=== PATIENT | male | born 1950 | race Caucasian/White ===

== ENCOUNTER 2023-02-03 10:03 | Emergency (ER) | payer MEDICARE, OTHER, SELFPAY ==
[2023-02-03] VITALS (33 sets, daily range): BP systolic 112–120; BP diastolic 57–62; PULSE 53–77; RESP 11–28; TEMP 36.6; O2SAT 68–100
--- NOTE | 2023-02-03 10:13 | ECG_ITS ---
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 Measurements Intervals [place] [facility] Rate: 55 P: -32 IL: 255 QRS: -21 QRSD: 173 T: 24 QT: 457 QTc: 437 Interpretive Statements SINUS BRADYCARDIA WITH FIRST DEGREE AV BLOCK BORDERLINE LEFT AXIS DEVIATION [QRS AXIS < -20] RIGHT BUNDLE BRANCH BLOCK [120+ ms QRS DURATION, UPRIGHT V1, 40+ ms S IN I/aVL/V4/V5/V6] No previous ECG available for comparison Electronically Signed On 02-03-2023 13:20:10 CDT by Yasir Galicia M.D. [id number]
--- NOTE | 2023-02-03 10:17 | XR_ITS ---
WS: [id number] XR chest 1V portable [id number] REASON FOR EXAM: dyspnea/cough FINDINGS: Mild tortuosity and ectasia of the thoracic aorta. Heart size at the upper limits of normal. Calcified granulomatous disease in both hemithoraces. Calcified probable nodular granulomatous change in the right lung apex. No active pulmonary parenchymal or pleural disease. Mild changes of degenerative spondylosis in the midthoracic spine. XR/XR chest 1V portable [id number] IMPRESSION: No acute chest abnormality.
[2023-02-03 10:40] LABS: Hematocrit 39.8 % (42.0-52.0); Hemoglobin 12.7 g/dL (11.7-16.6); Mean Corpuscular HGB Conc 31.9 g/dL (30.0-36.0); Mean Corpuscular Volume 93.9 fl (80-94); Mean Platelet Volume 11.1 fL (7.4-10.4); Platelet Count 154 10^3/cmm (130-400); Red Blood Count 4.24 10^6/uL (4.1-5.3); Red Cell Distribution Width 14.6 % (12.1-15.1); White Blood Count 10.9 10^3/uL (4.0-10.0)
[2023-02-03 11:01] LABS: Alanine Aminotransferase 63 U/L (0-41); Albumin Level 3.9 g/dL (3.5-5.2); Alkaline Phosphatase 108 U/L (40-130); Anion Gap 13.6 (5-19); Aspartate Amino Transferase 65 U/L (0-40); Blood Urea Nitrogen 24 mg/dL (8-23); Calcium 8.9 mg/dL (8.5-10.5); Carbon Dioxide 26 mmol/L (22-29); Chloride 100 mmol/L (98-107); Globulin 2.9 g/dL (1.3-4.6); Glucose 90 mg/dL (65-115); Osmolality Calculated 284 mOsm/kg (285-295); Potassium 4.6 mmol/L (3.5-5.1); Sodium 135 mmol/L (136-145); Total Bilirubin 0.4 mg/dL (0.15-1.2); Total Protein 6.8 g/dL (6.6-8.7)
--- NOTE | 2023-02-03 11:13 | W.ED.GENADLT ---
HPI - General Adult General: Chief complaint: General Medical Stated complaint: abnormal EKG Time Seen by Provider: 02/03/23 10:14 Source: patient Mode of arrival: ambulatory History of Present Illness: 72-year-old male directed to the ER by his primary care provider. He had a creatinine of 1.69 and a BNP of 597. This was done for lab work was done when he presented to the office complaining of feeling fatigued he denies any chest pain or discomfort no swelling in extremities no change in urinary output he has not had any orthopnea. Has no known history of coronary artery disease. He states he otherwise feels fine. Relieving factors: none Exacerbating factors: none Associated symptoms: Deny chest pain, dyspnea, malaise, nausea, rash or vomiting Review of Systems Const: Reports: fatigue; Denies: fever(s), chills, body aches, change in appetite or malaise ENMT: Denies: throat pain, ear or mastoid pain, nasal discharge or nasal congestion Card: Denies: chest pain, edema, dyspnea on exertion or orthopnea Resp: Denies: dyspnea, productive cough or non-productive cough GI: Denies: abdominal pain, nausea, vomiting, hematemesis, coffee ground emesis, diarrhea, constipation, bloating, hematochezia or melena : Denies: flank pain, dysuria, urinary frequency or urinary urgency Skin/Breast: Denies: rash or pruritus PFSH ED PFSH: Social History Smoking and tobacco status: never smoked Physical Exam Const: COMMON NORMALS: no acute distress GENERAL APPEARANCE: cooperative and comfortable ORIENTATION/CONSCIOUSNESS: Yes awake, Yes oriented to person, Yes oriented to place and Yes oriented to time HENMT: COMMON NORMALS: normocephalic, atraumatic and hearing grossly normal bilaterally HEAD & SCALP: normocephalic and atraumatic Resp: COMMON NORMALS: normal respiratory effort, No retractions, No use of accessory muscles and clear to auscultation bilaterally AUSCULTATION: clear to auscultation bilaterally Cardio: COMMON NORMALS: regular rate, regular rhythm and No murmurs present (Cardio) RATE: regular rate RHYTHM: regular rhythm GI: COMMON NORMALS: Soft to palpation and No hepatosplenomegaly present AUSCULTATION: Yes normoactive bowel sounds PALPATION: Yes Soft to palpation, No Tenderness to palpation present (GI), No Guarding due to palpation present (GI) and Yes No hepatosplenomegaly present Extremity: COMMON NORMALS: normal to inspection, capillary refill normal, no clubbing, cyanosis or edema, no calf tenderness and no pedal edema Neuro: SENSORIUM/ORIENTATION: Yes oriented to person, Yes oriented to place and Yes oriented to time Skin: COMMON NORMALS: no rashes or lesions noted GENERAL SKIN EXAM: no rashes or lesions noted Course Vital Signs: Vital signs: Vital Signs Temperature 97.9 F 02/03/23 10:19 Pulse Rate 54 L 02/03/23 13:00 Respiratory Rate 15 02/03/23 13:00 Blood Pressure 120/57 02/03/23 13:00 Pulse Oximetry 97 02/03/23 12:55 Oxygen Delivery Me thod Room Air 02/03/23 12:55 MDM - General Adult Medical Decision Making Labs are unremarkable. There is a slight elevation in his creatinine which may be his baseline or may be related to his recent use of Bactrim. His BNP is elevated but he has no overt symptoms of fluid overload. Would recommend avoiding Bactrim rechecking his creatinine in 1 to 2 weeks. If he has further symptoms could consider an echocardiogram as an outpatient recommend he follow-up with his primary care doctor Medical Records I reviewed the patient's medical records. Lab Data I reviewed the patient's lab results. 02/03/23 10:20 02/03/23 10:20 Radiology Impressions Chest X-Ray 02/03/23 10:17 IMPRESSION: No acute chest abnormality. Laboratory Results WBC 10.9 10^3/uL (4.0-10.0) H 02/03/23 10:20 RBC 4.24 10^6/uL (4.1-5.3) 02/03/23 10:20 Hgb 12.7 g/dL (11.7-16.6) 02/03/23 10:20 Hct 39.8 % (42.0-52.0) L 02/03/23 10:20 MCV 93.9 fl (80-94) 02/03/23 10:20 MCH 30.0 pg (28.0-34.0) 02/03/23 10:20 MCHC 31.9 g/dL (30.0-36.0) 02/03/23 10:20 RDW 14.6 % (12.1-15.1) 02/03/23 10:20 Plt Count 154 10^3/cmm (130-400) 02/03/23 10:20 MPV 11.1 fL (7.4-10.4) H 02/03/23 10:20 Lymph % (Auto) Not Reportable 02/03/23 10:20 [place] % (Auto) Not Reportable 02/03/23 10:20 Neut # (Auto) Unindentured Apprentice 02/03/23 10:20 Lymph # (Auto) Not Reportable 02/03/23 10:20 [place] # (Auto) Not Reportable 02/03/23 10:20 Total Counted 100 (0-100) 02/03/23 10:20 Atypical Lymphs % 14.0 % (0-5) H 02/03/23 10:20 Absolute Neutrophils 1.1 10^3/cmm (1.4-6.5) L 02/03/23 10:20 Segmented Neutrophils 10 % 02/03/23 10:20 Abs Segm Neuts (Man) 1.1 10/cmm (1.6-7.1) L 02/03/23 10:20 Band Neutrophils 0.0 % 02/03/23 10:20 Abs Band Neuts (Man) 0.0 10^3/cmm (0.0-1.2) 02/03/23 10:20 Absolute Lymphocytes 8.9 10^3/cmm (1.2-3.4) H 02/03/23 10:20 Lymphocytes (Manual) 68 % 02/03/23 10:20 Monocytes (Manual) 8.0 % 02/03/23 10:20 Absolute Monocytes 0.9 10^3/cmm (0.1-0.6) H 02/03/23 10:20 Eosinophils (Manual) 0 % 02/03/23 10:20 Absolute Eosinophils 0.0 10^3/cmm (0.0-0.7) 02/03/23 10:20 Basophils (Manual) 0.0 % 02/03/23 10:20 Absolute Basophils 0.0 10^3/cmm (0.0-0.2) 02/03/23 10:20 Platelet Estimate Normal (Normal) 02/03/23 10:20 Sodium 135 mmol/L (136-145) L 02/03/23 10:20 Potassium 4.6 mmol/L (3.5-5.1) 02/03/23 10:20 Chloride 100 mmol/L (98-107) 02/03/23 10:20 Carbon Dioxide 26 mmol/L (22-29) 02/03/23 10:20 Anion Gap 13.6 (5-19) 02/03/23 10:20 BUN 24 mg/dL (8-23) H 02/03/23 10:20 Creatinine 1.4 mg/dL (0.7-1.2) H 02/03/23 10:20 GFR Calculation Not Reportable 02/03/23 10:20 Glucose 90 mg/dL (65-115) 02/03/23 10:20 Calculated Osmolality 284 mOsm/kg (285-295) L 02/03/23 10:20 Calcium 8.9 mg/dL (8.5-10.5) 02/03/23 10:20 Total Bilirubin 0.4 mg/dL (0.15-1.2) 02/03/23 10:20 AST 65 U/L (0-40) H 02/03/23 10:20 ALT 63 U/L (0-41) H 02/03/23 10:20 Alkaline Phosphatase 108 U/L (40-130) 02/03/23 10:20 Total Protein 6.8 g/dL (6.6-8.7) 02/03/23 10:20 Albumin 3.9 g/dL (3.5-5.2) 02/03/23 10:20 Globulin 2.9 g/dL (1.3-4.6) 02/03/23 10:20 Urine Color Yellow (Yellow) 02/03/23 11:56 Urine Appearance Clear (CLEAR) 02/03/23 11:56 Urine pH 5 (5-7) 02/03/23 11:56 Ur Specific [place] 1.020 (1.005-1.030) 02/03/23 11:56 Urine Protein Neg (Negative) 02/03/23 11:56 Urine Glucose (UA) Norm (Normal) 02/03/23 11:56 Urine Ketones Negative (Negative) 02/03/23 11:56 Urine Blood Neg (Negative) 02/03/23 11:56 Urine Nitrate Negative (Negative) 02/03/23 11:56 Urine Bilirubin Neg (Negative) 02/03/23 11:56 Urine Urobilinogen Norm mg/dL (Negative) 02/03/23 11:56 Ur Leukocyte Esterase Negative (Negative) 02/03/23 11:56 Discharge Plan Discharge Patient Disposition: Home Clinical Impression: Abnormal laboratory test result Condition: Stable Prescriptions: No Action Men's Multi-Vitamin Tablet 1 tab PO DAILY Discharge Orders: Discharge ED (Routine); Ordered 02/03/23 Ordered By: Ney Mc Referrals: Saba Monge NP [Primary Care Provider] - Discharge Diet: Usual diet Discharge Activity: Resume usual activity Patient Instructions: Opioid Safety, Pain Management Activity Restrictions/Additional Instructions: You are seen today with reports of an abnormal creatinine and elevated BNP. Creatinine is likely elevated due to your recent use of the Bactrim. This can be followed up as an outpatient is not emergent and do not require hospitalization for this. BNP is a test that can be used to gauge congestive heart failure. It also has many false positives. 1 of these is elevated creatinines. He have no clinical signs of fluid overload or congestive heart failure at this time this can be also followed up as an outpatient. Coding Level of Care Code ED 3Rd Mate for Rene Melendez
[2023-02-03 12:12] LABS: Slide Review Slide Review Perform
[2023-02-03 12:13] LABS: Absolute Neutrophil 1.1 10^3/cmm (1.4-6.5); Absolute Segmented Neutrophil 1.1 10/cmm (1.6-7.1); Eosinophils 0 %; Lymphocytes 68 %; Lymphocytes Absolute 8.9 10^3/cmm (1.2-3.4); Monocytes Absolute 0.9 10^3/cmm (0.1-0.6); Platelet Estimate Normal (Normal); Segmented Neutrophils 10 %; Total Cells Counted 100 (0-100)
[2023-02-03 12:22] LABS: Add Urine Microscopic? NO; Charge for UA Resulting for Rev
[2023-02-03 12:40] LABS: Bilirubin Urine Neg (Negative); Blood Urine Neg (Negative); Glucose Urine UA Norm (Normal); Ketones Urine Negative (Negative); Leukocyte Esterase Urine Negative (Negative); Nitrate Urine Negative (Negative); Protein Urine Neg (Negative); Urine Appearance Clear (CLEAR); Urine Color Yellow (Yellow); Urobilinogen Urine Norm (Negative); pH Urine 5 (5-7)
== END 2023-02-03 13:07 | disposition home or self-care (01) ==
PROVIDERS: Emergency Provider Family Medicine; PCP Nurse Practitioner Family
DX: R94.31 Abnormal electrocardiogram [ECG] [EKG] (principal); R94.4 Abnormal results of kidney function studies
CPT/HCPCS: 71045; 80053; 80503; 81003; 85007; 85025; 93005; 99285

== ENCOUNTER 2023-02-17 13:07 | Outpatient (CLI) | payer MEDICARE, OTHER, SELFPAY ==
--- NOTE | 2023-02-17 13:18 | USCV_ITS ---
Dino Dudley Age: 72 Gender: M : 1950 Exam Date: 02/17/2023 14:15 Ordering Phys: Juanis Kwok Technologist: DELL Exam Location: [facility] – [place] Indication: murmur BP: 125 / 60 HR: 57 Rhythm: Sinus Technical Quality: Adequate MEASUREMENTS (Male / Female) Normal Values 2D ECHO LVOT Diameter 2.0 cm LV Ejection Fraction MOD 2C 73.1 % LV Ejection Fraction 2C AL 74.0 % LA Diameter 3.8 cm LA Width 4.2 cm LA Height 5.3 cm RA Width 4.0 cm RA Height 4.8 cm Aorta at Sinotubular Diameter 2.6 cm IVC Diameter 1.8 cm M-MODE Aortic Annulus Diameter 2.7 cm LA Ao Ratio MM 1.1 MV E Point Septal Separation 0.3 cm DOPPLER AV Peak Velocity 247.8 cm/s LVOT Peak Velocity 141.0 cm/s AV Area Cont Eq vti 1.7 cm squared AV Area Cont Eq pk 1.7 cm squared MV Peak Velocity 147.0 cm/s MV Area PHT 3.2 cm squared Mitral E to A Ratio 1.8 MV E' Velocity 80.0 cm/s Mitral E to MV E' Ratio 14.3 Mitral E to LV E' Lateral Ratio 13.3 Mitral E to LV E' Septal Ratio 15.5 TR Peak Velocity 167.1 cm/s TR Peak Gradient 11.2 mmHg TR Mean Velocity 125.0 cm/s TR Mean Gradient 7.0 mmHg TR Velocity Time Integral 48.4 cm TV Peak E Velocity 50.0 cm/s Right Atrial Pressure 3.0 mmHg Pulmonary Artery Systolic Pressu 14.2 mmHg PV Peak Velocity 145.0 cm/s RV Acceleration Time 0.2 s RV Ejection Time 0.3 s RV AcT/ET 0.5 FINDINGS Left Ventricle Normal left ventricular size, systolic function and wall thickness, with no regional wall motion abnormalities. Left ventricular ejection fraction is estimated at 70 %. Grade II diastolic dysfunction, moderately elevated filling pressures. Right Ventricle Normal right ventricular size and systolic function. Right ventricular systolic pressure 14.2 mmHg. Right Atrium Normal right atrial size. Left Atrium Moderately increased left atrial size. Mitral Valve Thickened mitral valve. Posterior mitral leaflet prolapse. No mitral valve stenosis. At least moderate very eccentric anteriorly directed mitral regurgitation. Aortic Valve Aortic valve sclerosis without stenosis. No aortic valve regurgitation. Tricuspid Valve Structurally normal tricuspid valve. No tricuspid valve stenosis. Trace tricuspid valve regurgitation. Pulmonic Valve Structurally normal pulmonic valve. No pulmonary valve stenosis. Trace pulmonary valve regurgitation. Pericardium No pericardial effusion. Aorta Normal size aortic root and proximal ascending aorta. IVC Normal IVC dimension with >50% respiratory change of the inferior vena cava. CONCLUSIONS 1. Normal left ventricular size, systolic function and wall thickness, with no regional wall motion abnormalities. Left ventricular ejection fraction is estimated at 70 %. Grade II diastolic dysfunction, moderately elevated filling pressures. 2. Moderately increased left atrial size. 3. Posterior mitral leaflet prolapse. At least moderate very eccentric anteriorly directed mitral regurgitation. 4. No prior similar studies to compare. Taylor Noble MD (Electronically Signed) Final Date: 24 February 2023 17:15 S
== END 2023-02-17 13:08 | disposition home or self-care (01) ==
LOC: RAD 13:10
PROVIDERS: PCP Nurse Practitioner Family; Visit Provider Nurse Practitioner Family
DX: I34.1 Nonrheumatic mitral (valve) prolapse (principal); I51.7 Cardiomegaly
CPT/HCPCS: 93306

== ENCOUNTER → 2023-03-02 09:29 | Outpatient (BNVA) | payer MEDICARE, OTHER, SELFPAY | PROVIDERS: PCP Nurse Practitioner Family; Visit Provider Psychiatry & Neurology Neurology | DX: R41.3 Other amnesia (principal); I34.1 Nonrheumatic mitral (valve) prolapse; R01.1 Cardiac murmur, unspecified; R29.818 Other symptoms and signs involving the nervous system; R29.90 Unspecified symptoms and signs involving the nervous system; R00.1 Bradycardia, unspecified | CPT/HCPCS: 36415; 81241; 82306; 82465; 82746; 83090; 83735; 83921; 84155; 84165; 84439; 84443; 85210; 85300; 85303; 85306; 85610; 85651; 86140; 86147; 86160; 86162; 86235; 86255; 86334; 86376; 86431; 86780; 87806; 99204 ==

== ENCOUNTER → 2023-03-02 09:29 | Outpatient (BNVA) | payer MEDICARE, OTHER, SELFPAY | PROVIDERS: PCP Nurse Practitioner Family; Visit Provider Psychiatry & Neurology Neurology | DX: R41.3 Other amnesia (principal); R29.818 Other symptoms and signs involving the nervous system; R29.90 Unspecified symptoms and signs involving the nervous system; R00.1 Bradycardia, unspecified | CPT/HCPCS: 36415; 81241; 82306; 82465; 82746; 83090; 83735; 83921; 84155; 84165; 84439; 84443; 85210; 85300; 85303; 85306; 85610; 85651; 86140; 86147; 86160; 86162; 86235; 86255; 86334; 86376; 86431; 86780; 87806 ==

== ENCOUNTER 2023-03-05 11:39 | Outpatient (CLI) | payer MEDICARE, OTHER, SELFPAY ==
--- NOTE | 2023-03-05 10:15 | MR_ITS ---
WS: [id number] MRI HEAD WITH CONTRAST TECHNIQUE: Sagittal T1, T2 axial, T2 axial FLAIR, axial susceptibility weighted imaging, axial diffus ion weighted images, and coronal T2 images were obtained. Pre and post-T1 axial and post T1 coronal i mages. ADC and FSPGR images. CLINICAL INFORMATION: R41.3 - Other amnesia COMPARISON: None. FINDINGS: No evidence of restricted diffusion to suggest acute ischemia. Ventricular system and basal cisterns are patent. Mild small vessel changes. Moderate parenchymal volume loss. No extra-axial fluid collect ions. No evidence of mass or mass effect. Normal posterior fossa. Normal vascular flow voids at the s kull base. Mild mucosal thickening in the paranasal sinuses. Normal posterior nasopharynx. Mastoid air cells wel l aerated. No hemosiderin on susceptibly weighted images. Normal optic chiasm and pituitary infundibu lum. Moderate symmetric atrophy temporal lobes and hippocampal formations. No abnormal gadolinium enhancement. Normal dural venous sinuses. Normal optic chiasm. Normal pituitar y infundibulum. Normal cavernous sinuses and Meckel's cave. MR/MR head wo/w con [id number] IMPRESSION: 1. No evidence restricted diffusion to suggest acute ischemia. 2. Mild small vessel changes with moderate parenchymal volume loss. 3. Moderate to advanced LEFT greater than RIGHT atrophy of the temporal lobes and hippocampal formations. Supratentorial parenchymal volume loss more promine nt in the parietal lobes. 4. No hemosiderin on susceptibly weighted images. 5. No abnormal gadolinium enhancement.
[2023-03-05] MEDS: gadobenate dimeglumine 20 mL vial IV (12:32)
== END 2023-03-05 11:40 | disposition home or self-care (01) ==
PROVIDERS: PCP Nurse Practitioner Family; Visit Provider Psychiatry & Neurology Neurology
DX: R29.818 Other symptoms and signs involving the nervous system (principal); R41.3 Other amnesia
CPT/HCPCS: 36415; 70553; 81241; 82306; 82465; 82746; 83090; 83735; 83921; 84155; 84165; 84439; 84443; 85210; 85300; 85303; 85306; 85610; 85651; 86140; 86147; 86160; 86162; 86235; 86255; 86334; 86376; 86431; 87806

== ENCOUNTER 2023-03-10 14:20 | Outpatient (CLI) | payer MEDICARE, OTHER, SELFPAY ==
--- NOTE | 2023-03-10 15:30 | USCV_ITS ---
Dino Dudley Age: 72 Gender: M : 1950 Exam Date: 03/10/2023 15:00 Ordering Phys: Nick Newman MD Technologist: Exam Location: [facility] – [place] Indication: dizzy Risk Factors: Previous Vascular Surgery: Right Brachial BP: / Left Brachial BP: / Right Left Velocity (cm/s) Spectral Plaque Velocity (cm/s) Spectral Plaque Syst/Diast Broadening Syst/Diast Broadening 76.10/ 14.30 Prox CCA 57.50 / 8.50 67.30/ 13.20 Mid CCA 57.50 / 10.10 61.70/ 8.80 Hetro Distal CCA 61.40 / 10.10 Hetro 71.70/ 17.60 Hetro Prox ICA 73.80 / 15.50 Hetro 71.70/ 16.50 Mid ICA 77.70 / 17.10 77.20/ 18.70 Distal ICA 90.10 / 19.40 94.80 ECA 69.90 1.01 ICA/CCA 1.47 Antegrade Vertebral Antegrade 32.60/ 2.70 cm/s 43.00/ 6.00 cm/s Tri Subclavian Tri 55.90 94.00 CONCLUSIONS Right ICA stenosis <50%. Mild atheromatous plaque right carotid bulb/ICA. Left ICA stenosis <50%. Mild atheromatous plaque left carotid bulb/ICA. Normal antegrade Doppler flow noted in the right vertebral artery. Normal antegrade Doppler flow noted in the left vertebral artery. Kevin Feliciano MD (Electronically Signed) Final Date: 10 March 2023 17:12 S
== END 2023-03-10 14:21 | disposition home or self-care (01) ==
LOC: RAD 14:22
PROVIDERS: PCP Nurse Practitioner Family; Visit Provider Psychiatry & Neurology Neurology
DX: R29.818 Other symptoms and signs involving the nervous system (principal); I34.1 Nonrheumatic mitral (valve) prolapse; R41.3 Other amnesia
CPT/HCPCS: 93880

== ENCOUNTER 2023-03-15 08:52 | Oncology outpatient (recurring) (ONCR) | payer MEDICARE, OTHER, SELFPAY | END 2023-03-22 23:59 | disposition home or self-care (01) | PROVIDERS: PCP Nurse Practitioner Family; Visit Provider Internal Medicine Medical Oncology | DX: D68.52 Prothrombin gene mutation (principal) | CPT/HCPCS: 99203; 99204 ==

== ENCOUNTER → 2023-03-15 11:41 | Outpatient (BNVA) | payer MEDICARE, OTHER, SELFPAY | PROVIDERS: PCP Nurse Practitioner Family; Visit Provider Internal Medicine Cardiovascular Disease | DX: R00.1 Bradycardia, unspecified (principal) | CPT/HCPCS: 93225 ==

== ENCOUNTER → 2023-03-22 09:57 | Outpatient (BNVA) | payer MEDICARE, OTHER, SELFPAY | PROVIDERS: PCP Nurse Practitioner Family; Referring Provider Psychiatry & Neurology Neurology; Visit Provider Psychiatry & Neurology Neurology | DX: R55 Syncope and collapse (principal) | CPT/HCPCS: 95816; 95819 ==

== ENCOUNTER → 2023-05-18 09:29 | Outpatient (BNVA) | payer MEDICARE, OTHER, SELFPAY | PROVIDERS: PCP Nurse Practitioner Family; Visit Provider Internal Medicine | DX: R41.3 Other amnesia (principal); M79.641 Pain in right hand; R76.8 Other specified abnormal immunological findings in serum | CPT/HCPCS: 36415; 73120; 82550; 82607; 83516; 83520; 84443; 86140; 86200; 86431; 86704; 86803; 87340; 99204 ==

== ENCOUNTER → 2023-05-26 13:23 | Outpatient (BNVA) | payer MEDICARE, OTHER, SELFPAY | PROVIDERS: PCP Nurse Practitioner Family; Visit Provider Internal Medicine | DX: G62.9 Polyneuropathy, unspecified (principal); G56.21 Lesion of ulnar nerve, right upper limb; R76.8 Other specified abnormal immunological findings in serum | CPT/HCPCS: 99214 ==

== ENCOUNTER → 2023-06-15 14:01 | Outpatient (BNVA) | payer MEDICARE, OTHER, SELFPAY | PROVIDERS: PCP Nurse Practitioner Family; Visit Provider Psychiatry & Neurology Neurology | DX: R41.3 Other amnesia (principal) | CPT/HCPCS: 99213 ==

== ENCOUNTER 2023-08-25 12:33 | Outpatient (CLI) | payer MEDICARE, OTHER, SELFPAY ==
--- NOTE | 2023-08-25 13:30 | USCV_ITS ---
Dino Dudley Age: 73 Gender: M : 1950 Exam Date: 08/25/2023 13:41 Ordering Phys: Taylor Noble MD ([email or web address]) Technologist: CT Exam Location: [facility] – [place] Indication: Sob BP: / HR: 50 Rhythm: Sinus Technical Quality: Adequate MEASUREMENTS (Male / Female) Normal Values 2D ECHO LV Chamber Size 6.3 cm RV Chamber Size 3.8 cm LVOT Diameter 2.1 cm LV Ejection Fraction MOD 2C 67.3 % LV Ejection Fraction 2C AL 66.1 % LA Diameter 4.8 cm LA Width 5.4 cm LA Height 5.8 cm RA Width 4.0 cm RA Height 5.0 cm Aorta at Sinotubular Diameter 2.6 cm IVC Diameter 1.8 cm M-MODE Aortic Annulus Diameter 3.3 cm LA Ao Ratio MM 1.5 MV E Point Septal Separation 0.5 cm FINDINGS Left Ventricle Right Ventricle Right Atrium Left Atrium Mitral Valve Aortic Valve Tricuspid Valve Pulmonic Valve Pericardium Aorta IVC CONCLUSIONS This is a limited echocardiogram performed to assess LV systolic function. LV systolic function is normal with EF of 60 to 65%. No regional wall motion abnormalities. Possible mitral valve prolapse. No doppler exam performed Yasir Galicia MD (Electronically Signed) Final Date: 28 August 2023 15:45 S
== END 2023-08-25 12:34 | disposition home or self-care (01) ==
LOC: RAD 12:34
PROVIDERS: PCP Nurse Practitioner Family; Visit Provider Internal Medicine Cardiovascular Disease
DX: R06.02 Shortness of breath (principal); R00.1 Bradycardia, unspecified
CPT/HCPCS: 93308

== ENCOUNTER → 2023-10-25 10:16 | Outpatient (BNVA) | payer MEDICARE, OTHER, SELFPAY | PROVIDERS: PCP Nurse Practitioner Family; Visit Provider Nurse Practitioner Family | DX: R00.1 Bradycardia, unspecified (principal) | CPT/HCPCS: 99213 ==

== ENCOUNTER → 2023-11-23 13:44 | Outpatient (BNVA) | payer MEDICARE, OTHER, SELFPAY | PROVIDERS: PCP Nurse Practitioner Family; Visit Provider Psychiatry & Neurology Neurology | DX: R41.3 Other amnesia (principal); D68.52 Prothrombin gene mutation; R00.1 Bradycardia, unspecified; I34.0 Nonrheumatic mitral (valve) insufficiency; I34.1 Nonrheumatic mitral (valve) prolapse; Z87.891 Personal history of nicotine dependence | CPT/HCPCS: 36415; 82542; 86317; 86695; 86696; 86788; 86789; 99212 ==

== ENCOUNTER 2023-12-16 07:53 | Outpatient (CLI) | payer MEDICARE, OTHER, SELFPAY ==
--- NOTE | 2023-12-16 08:30 | FL_ITS ---
WS: [id number] LUMBAR PUNCTURE CLINICAL INFORMATION: R00.1 - Bradycardia, unspecified COMPARISON: None. TECHNIQUE: Informed consent: The procedure and its potential risk and complications were discussed with the riddhi ent. Verbal and written consent was obtained. Timeout: A timeout was performed to confirm correct patient, procedure, and site. Patient was prepped and draped in the usual sterile fashion. Lidocaine 1% was used for local anesthes ia. Utilizing fluoroscopic guidance, a 3.5 inch 22-gauge spinal needle was advanced into the subarach noid space at L3-L4 via LEFT oblique sublaminar approach. Free flow of clear CSF was obtained. 12 cc of clear CSF was collected and sent the lab for further analysis. Opening pressure 13 cmH2O Closing pressure 8 cmH2O FLUOROSCOPIC TIME: 1min [id number] # of spot films: 1 IMPRESSION: Fluoroscopically guided lumbar puncture. No immediate complications
[2023-12-16 09:53] LABS: Mononuclear WBC CSF % 100 % (50-90); Polynuclear WBC CSF % 0 % (0-10); Red Blood Cell CSF 0 10^3/uL (0-0); White Blood Cell CSF 1 /uL (0-5)
[2023-12-16 10:08] LABS: Appearance CSF CLEAR (CLEAR); Color CSF COLORLESS (COLORLESS)
[2023-12-16 10:21] LABS: Glucose CSF 55 mg/dL (40-70); Total Protein CSF 33 mg/dL (15-45)
[2023-12-20] LABS: JC Virus DNA Ultra QN PCR NOT DETECTED Log IU/mL; JC Virus Quant CSF PCR NOT DETECTED
[2023-12-21 22:30] LABS: VDRL on CSF NON-REACTIVE
== END 2023-12-16 07:54 | disposition home or self-care (01) ==
LOC: RAD 07:55
PROVIDERS: PCP Nurse Practitioner Family; Visit Provider Psychiatry & Neurology Neurology
DX: R00.1 Bradycardia, unspecified (principal); I34.1 Nonrheumatic mitral (valve) prolapse; I34.0 Nonrheumatic mitral (valve) insufficiency; D68.52 Prothrombin gene mutation; R41.3 Other amnesia
CPT/HCPCS: 62328; 80503; 82945; 84157; 86592; 87015; 87070; 87075; 87116; 87205; 87206; 87327; 87799; 87801; 89050

== ENCOUNTER → 2024-02-18 10:38 | Outpatient (BNVA) | payer MEDICARE, OTHER, SELFPAY | PROVIDERS: PCP Nurse Practitioner Family; Visit Provider Psychiatry & Neurology Neurology | DX: G56.20 Lesion of ulnar nerve, unspecified upper limb (principal) | CPT/HCPCS: 95910; 95911 ==

== ENCOUNTER → 2024-05-23 14:47 | Outpatient (BNVA) | payer MEDICARE, OTHER, SELFPAY | PROVIDERS: PCP Nurse Practitioner Family; Visit Provider Psychiatry & Neurology Neurology | DX: R41.3 Other amnesia (principal) | CPT/HCPCS: 99212 ==

== ENCOUNTER → 2024-09-26 13:42 | Outpatient (BNVA) | payer MEDICARE, OTHER, SELFPAY | PROVIDERS: PCP Nurse Practitioner Family; Visit Provider Psychiatry & Neurology Neurology | DX: R41.3 Other amnesia (principal) | CPT/HCPCS: 83520; 99212 ==

== ENCOUNTER → 2024-12-27 14:47 | Outpatient (BNVA) | payer MEDICARE, OTHER, SELFPAY | PROVIDERS: PCP Nurse Practitioner Family; Visit Provider Psychiatry & Neurology Neurology | DX: R41.3 Other amnesia (principal) | CPT/HCPCS: 99212 ==

== ENCOUNTER 2025-02-10 15:33 | Emergency (ER) | payer MEDICARE, OTHER, SELFPAY ==
[2025-02-10 15:38] VITALS: BP 118/68; PULSE 54; RESP 17; TEMP 36.9; O2SAT 97; BMI 25.0
--- NOTE | 2025-02-10 15:47 | XRR_ITS ---
PROCEDURE INFORMATION: Exam: XR Right Hand Exam date and time: 02/10/2025 4:29 PM Age: 74 years old Clinical indication: Swelling; Hand; Right; Additional info: Pain swelling TECHNIQUE: Imaging protocol: Radiologic exam of the right hand. Views: 3 or more views. COMPARISON: No relevant prior studies available. FINDINGS: Bones/joints: An acute oblique fracture through the base of the 3rd distal phalanx involves the distal interphalangeal joint. Fracture is minimally displaced and best seen on the lateral view. Soft tissues: Normal. XR/XR hand RT min 3V* [id number] IMPRESSION: Acute intra-articular fracture involving the 3rd distal phalanx, seen primarily on the lateral view.
--- NOTE | 2025-02-10 15:48 | W.ED.SKABFB ---
HPI - Skin/Abscess/Foreign Bdy General: Chief complaint: Skin/Abscess/Foreign Body Stated complaint: right hand middle finger swelling Time Seen by Provider: 02/10/25 15:46 History of Present Illness: 74-year-old male presents emergency room some swelling of the tip of his finger. He believes he may have gotten something underneath the cuticle he does not recall doing so he has noticed some bruising and swelling in that region. Denies fever sweats or chills no drainage from the finger. Associated symptoms: Deny chills or fever(s) Related Data Home Medications ?Medication ?Instructions ?Recorded ?Confirmed multivitamin 1 tab PO DAILY 02/03/23 02/13/25 Previous Rx's ?Medication ?Instructions ?Recorded aspirin 325 mg tablet 325 mg PO DAILY 30 days #30 tabs 09/26/24 thiamine HCl (vitamin B1) 100 mg 100 mg PO DAILY #90 tabs 09/26/24 tablet memantine 10 mg tablet See Rx Instructions .Route 11/22/24 .COMPLEX #60 tabs Allergies Allergy/AdvReac Type Severity Reaction Status Date / Time Alpha-Gal Allergy ALGY-Anaphy Verified 12/27/24 16:40 (Zbozqxqcg-Htbod-0,3-Gala laxis Penicillins Allergy rash Verified 12/27/24 16:40 Review of Systems Const: Denies: fever(s) or chills Card: Denies: chest pain Resp: Denies: dyspnea GI: Denies: abdominal pain : Denies: dysuria, urinary frequency or urinary urgency Musc: Denies: neck pain or back pain Skin/Breast: Denies: rash PFSH ED PFSH: Medical History Bradycardia Mitral regurgitation Mitral valve prolapse Allergy to alpha-gal Family History Mother Dementia Social History Smoking and tobacco/nicotine status: former use of tobacco/nicotine Quit status (tobacco/nicotine): has quit using Year quit tobacco: 30 years ago Former quit date comment: Light Pipe smoker Alcohol intake: current Alcohol intake frequency: 0-2 Drinks per Day Substance/Drug Use: never Physical Exam Const: COMMON NORMALS: no acute distress GENERAL APPEARANCE: cooperative and comfortable ORIENTATION/CONSCIOUSNESS: Yes awake, Yes oriented to person, Yes oriented to place and Yes oriented to time HENMT: COMMON NORMALS: normocephalic, atraumatic and hearing grossly normal bilaterally HEAD & SCALP: normocephalic and atraumatic Resp: COMMON NORMALS: normal respiratory effort, No retractions, No use of accessory muscles and clear to auscultation bilaterally AUSCULTATION: clear to auscultation bilaterally Cardio: COMMON NORMALS: regular rate, regular rhythm and No murmurs present (Cardio) RATE: regular rate RHYTHM: regular rhythm GI: COMMON NORMALS: Soft to palpation and No hepatosplenomegaly present AUSCULTATION: Yes normoactive bowel sounds PALPATION: Yes Soft to palpation, No Tenderness to palpation present (GI), No Guarding due to palpation present (GI) and Yes No hepatosplenomegaly present Extremity: OTHER: Swelling at the cuticle with some ecchymosis no apparent drainage no redness or no erythema Neuro: SENSORIUM/ORIENTATION: Yes oriented to person, Yes oriented to place and Yes oriented to time Skin: COMMON NORMALS: no rashes or lesions noted GENERAL SKIN EXAM: no rashes or lesions noted Course Vital Signs: Vital signs: Vital Signs Temperature 98.4 F 02/10/25 15:38 Pulse Rate 54 L 02/10/25 15:38 Respiratory Rate 17 02/10/25 15:38 Blood Pressure 118/68 02/10/25 15:38 Pulse Oximetry 97 02/10/25 15:38 Oxygen Delivery Me thod Room Air 02/10/25 15:38 MDM - Skin/Abscess/Foreign Bdy Medicial Decision Making First appearance almost looks like he might have had a paronychia developing. However there is no redness or induration. X-ray shows a distal phalanx fracture. Will splint the finger and follow-up with Ortho Lab Data Radiology Impressions Hand X-Ray 02/10/25 15:47 IMPRESSION: Acute intra-articular fracture involving the 3rd distal phalanx, seen primarily on the lateral view. All radiology interpretation(s) finalized by discharge Discharge Plan Discharge Patient Disposition: Home Clinical Impression: Fracture of distal phalanx of finger Condition: Stable Prescriptions: No Action aspirin 325 mg tablet 325 mg PO DAILY 30 Days Qty: 30 5RF thiamine HCl (vitamin B1) 100 mg tablet 100 mg PO DAILY Qty: 90 5RF memantine 10 mg tablet See Rx Instructions .ROUTE .COMPLEX Qty: 60 5RF Dose Instruction: TAKE 1 TABLET BY MOUTH TWICE DAILY Rx Instructions: TAKE 1 TABLET BY MOUTH TWICE DAILY Men's Multi-Vitamin Tablet 1 tab PO DAILY Discharge Orders: Discharge ED (Routine); Ordered 02/10/25 Ordered By: Ney Mc Referrals: Saba Monge, MORTGAGE COORDINATOR [Primary Care Provider, Nurse Practitioner] Discharge Diet: Usual diet Discharge Activity: Limit activity as instructed Patient Instructions: Opioid Safety, Pain Management Activity Restrictions/Additional Instructions: Thank you for choosing [facility] for your healthcare needs today. It is very important that you follow up as instructed or that you return to the Emergency Department should you have concerns or if your condition changes or worsens in any way. You were seen in the emergency room with complaint of right third finger pain. X-ray shows a distal phalanx fracture. Leave the splint on until you are seen by the orthopedist. You can remove it briefly to clean if needed. You should limit the use of your right hand. Case management will call to make arrangements for orthopedic follow-up Print Language: Sinhala Coding Level of Care Code ED Physically Impaired Teacher for Rene Melendez
--- NOTE | 2025-02-12 08:47 | DCPLANNER ---
Message sent to Ortho for follow up- An acute oblique fracture through the base of the 3rd distal phalanx involves the distal interphalangeal joint. Fracture is minimally displaced and best seen on the lateral view.
== END 2025-02-10 17:54 | disposition home or self-care (01) ==
PROVIDERS: Emergency Provider Family Medicine; PCP Nurse Practitioner Family
DX: S62.632A Displaced fracture of distal phalanx of right middle finger, initial encounter for closed fracture (principal); Z87.891 Personal history of nicotine dependence; X58.XXXA Exposure to other specified factors, initial encounter
CPT/HCPCS: 73130; 99283

== ENCOUNTER → 2025-02-13 14:03 | Outpatient (BNVA) | payer MEDICARE, OTHER, SELFPAY | PROVIDERS: PCP Nurse Practitioner Family; Visit Provider Orthopaedic Surgery | DX: S62.632A Displaced fracture of distal phalanx of right middle finger, initial encounter for closed fracture (principal); X58.XXXA Exposure to other specified factors, initial encounter | CPT/HCPCS: 73130; 99203 ==

== ENCOUNTER → 2025-03-06 14:22 | Outpatient (BNVA) | payer MEDICARE, OTHER, SELFPAY | PROVIDERS: PCP Nurse Practitioner Family; Visit Provider Orthopaedic Surgery | DX: S62.632D Displaced fracture of distal phalanx of right middle finger, subsequent encounter for fracture with routine healing (principal); X58.XXXD Exposure to other specified factors, subsequent encounter | CPT/HCPCS: 73130; 99213 ==

== ENCOUNTER → 2025-03-27 13:52 | Outpatient (BNVA) | payer MEDICARE, OTHER, SELFPAY | PROVIDERS: PCP Nurse Practitioner Family; Visit Provider Orthopaedic Surgery | DX: S62.632D Displaced fracture of distal phalanx of right middle finger, subsequent encounter for fracture with routine healing (principal); X58.XXXD Exposure to other specified factors, subsequent encounter | CPT/HCPCS: 73130; 99213 ==